=== PATIENT | female | born 1960 | race Caucasian/White ===

== ENCOUNTER 2022-05-02 09:42 | Emergency (ER) | payer OTHER ==
[~2022-05-02] VITALS: Ht 154.9 cm; Wt 86.2 kg
[~2022-05-02 09:42] MED LIST: AVALIDE 150-12.1 TA1; CELEBREX200MG PO; INDERAL LA80 MG; VOLTAREN100 GM TOP; [UNRECOGNIZED DRUG - OTHER]
[2022-05-02] MEDS ORDERED: SYNTHROID88 MCG PO (10:40)
[2022-05-02] MEDS ORDERED: MONTELUKAST SOD10 MG PO (10:41)
[2022-05-02] MEDS ORDERED: AMLODIPINE BESYL5 MG PO (10:41)
[2022-05-02] MEDS ORDERED: CANDESARTAN-HC1 EAC1 PO (10:41)
== END 2022-05-02 16:47 | disposition home or self-care (01) ==
LOC: ER 09:42
DX: M62.830 Muscle spasm of back (principal); M54.2 Cervicalgia; R10.84 Generalized abdominal pain; R11.0 Nausea